=== PATIENT | female | born 1955 | race Caucasian/White ===

== ENCOUNTER → 2022-01-12 | Outpatient (CLI) | payer MEDICARE, OTHER ==
--- NOTE | 2022-01-12 10:43 | DIREP ---
PROCEDURE:NM LUNG SCAN PERFUSION COMPARISON:[facility], CR, XRAY CHEST 2 VWS, 01/12/2022, 09:10 AM. INDICATIONS:SHORTNESS OF BREATH, ELEVATED D-DIMER TECHNIQUE:After obtaining the patient's consent, a pulmonary perfusion scan was obtained in the usual manner. Ventilatory images were not obtained secondary to current COVID-19 precautions. PHARMACEUTICAL:6.2 mCi Tc-99m MAA intravenous. FINDINGS: VENTILATION:Not performed. PERFUSION:Normal symmetric perfusion. No segmental or pleural-based defects. CONCLUSION: Low probability perfusion scan for pulmonary embolus. Dictated by: Dustin Hillman MD on 01/12/2022 at 10:40 AM
--- NOTE | 2022-01-12 11:46 | DIREP ---
PROCEDURE:CHEST 2 VIEWS COMPARISON:None. INDICATIONS:SHORTNESS OF BREATH, ELEVATED D-DIMER FINDINGS: LUNGS/PLEURA:No significant pulmonary parenchymal abnormalities. No effusions. VASCULATURE:Normal. Unremarkable pulmonary vasculature. CARDIAC:Normal. No cardiac silhouette abnormality or cardiomegaly. MEDIASTINUM:Calcified aorta. BONES:Mild degenerative changes. OTHER:Negative. CONCLUSION:No acute pulmonary process. Dictated by: Nieves Ruiz M.D. on 01/12/2022 at 11:44 AM
== END | disposition home or self-care (01) ==
LOC: RAD 08:57
PROVIDERS: ATTEND Internal Medicine Cardiovascular Disease
DX: M47.814 Spondylosis without myelopathy or radiculopathy, thoracic region (principal); I70.0 Atherosclerosis of aorta; R06.02 Shortness of breath; R79.89 Other specified abnormal findings of blood chemistry
CPT/HCPCS: 78580; 71046; A9540